=== PATIENT | female | born 1965 | race Caucasian/White ===

== ENCOUNTER → 2017-01-09 | Outpatient (CLI) | payer OTHER ==
[~2017-01-09] MED LIST: ASCO100037 PO; ASCO500C PO; B COTAB6 PO; BALS750C PO; BUPR150XL PO; CALC200T PO; CALCTAB32 PO; COLA750C2 PO; CRAN1000 PO; CRAN1TAB5 PO; CYAN1000P IM; CYAN1KIT2 IM; DENO60P SQ; DEXI30CA2 PO; ESTR.625 PO; ESTR0.5T PO; ESTR1TAB PO; FISH1000 PO; FISH100020 PO; FURO1TAB62 PO; FURO20 PO; HUMI40KI; HUMI40KI SQ; HYDR200T42 PO; K-TA10TA5 PO; LEVO.125 PO; MACR100C2 PO; MAGN400C2 PO; MULT-65 PO; MULT1TAB46 PO; PLAQ200T PO; POTA-163 PO; PRED1 PO; PRED1TAB PO; SYNT112T PO; TOPA25TA8 PO; TOPA50TA7 PO; TOPI25 PO; VITA2000 PO; VITA20003 PO; ZINC25TA2 PO
[2017-01-09 08:14] LABS: AUTOMATED NEUTROPHIL # 1.9 TH/MM3 (1.8-7.7); BASOPHIL % 0.7 % (0.0-2.0); EOSINOPHIL # 0.1 TH/MM3 (0-0.4); EOSINOPHIL % 2.2 % (0.0-4.0); HEMATOCRIT 37.9 % (35.0-46.0); HEMO FLAGS DIFF FINAL; LYMPH % 50.4 % (9.0-44.0); LYMPHOCYTE # 2.6 TH/MM3 (1.0-4.8); MEAN CELL VOLUME 95.4 FL (80.0-100.0); MEAN CORPUSCULAR HEMOGLOBIN 32.6 PG (27.0-34.0); MEAN CORPUSCULAR HGB CONC 34.2 % (32.0-36.0); MONO % 9.5 % (0.0-8.0); NEUT % 37.2 % (16.0-70.0); PLATELET COUNT 186 TH/MM3 (150-450); RED BLOOD COUNT 3.98 MIL/MM3 (4.00-5.30); RED CELL DISTRIBUTION WIDTH 13.5 % (11.6-17.2); WHITE BLOOD COUNT 5.2 TH/MM3 (4.0-11.0)
[2017-01-09 08:33] LABS: ANION GAP 10 MEQ/L (5-15); AST (GOT) 15 U/L (15-37); BICARBONATE 22.5 MEQ/L (21.0-32.0); BLOOD UREA NITROGEN 9 MG/DL (7-18); CHLORIDE 112 MEQ/L (98-107); GLOMERULAR FILTRATION RATE 63 ML/MIN (>89); GLUCOSE,FASTING 81 MG/DL (74-99); POTASSIUM 3.8 MEQ/L (3.5-5.1); SODIUM (NA) 144 MEQ/L (136-145)
[2017-01-09 08:43] LABS: ALKALINE PHOSPHATASE 29 U/L (45-117); ALT (GPT) 19 U/L (10-53); FREE T4 1.25 NG/DL (0.76-1.46); TOTAL BILIRUBIN ADULT 0.4 MG/DL (0.2-1.0)
== END ==
LOC: CLAB 07:34
PROVIDERS: ATTEND Internal Medicine Rheumatology
DX: E27.1 Primary adrenocortical insufficiency (principal); E03.9 Hypothyroidism, unspecified; K50.80 Crohn's disease of both small and large intestine without complications
CPT/HCPCS: 36415; 80053; 82024; 82533; 84439; 84443; 85025; 85652; 86140

== ENCOUNTER → 2017-02-28 | Outpatient (CLI) | payer OTHER ==
[2017-02-28 13:23] LABS: BLOOD, URINE NEG (NEG); COMMENT (UR) CULT NOT INDICATED; CULTURE IF INDICATED CULT NOT INDICATED; GLUCOSE,URINE NEG (NEG); KETONE, URINE NEG (NEG); MUCUS URINE FEW /lpf (OCC); NITRITE,URINE NEG (NEG); PH, URINE 7.5 (5.0-8.5); SQUAMOUS EPITHELIAL CELL URINE <1 /hpf (0-5); URINE COLOR YELLOW (YELLW/STRAW)
[2017-02-28 13:26] LABS: AUTOMATED NEUTROPHIL # 2.4 TH/MM3 (1.8-7.7); BASOPHIL # 0.1 TH/MM3 (0-0.2); BASOPHIL % 0.8 % (0.0-2.0); EOSINOPHIL # 0.1 TH/MM3 (0-0.4); EOSINOPHIL % 1.5 % (0.0-4.0); HEMATOCRIT 43.3 % (35.0-46.0); LYMPH % 52.7 % (9.0-44.0); LYMPHOCYTE # 3.4 TH/MM3 (1.0-4.8); MEAN CELL VOLUME 97.1 FL (80.0-100.0); MEAN CORPUSCULAR HEMOGLOBIN 31.4 PG (27.0-34.0); MEAN CORPUSCULAR HGB CONC 32.4 % (32.0-36.0); MONO % 8.2 % (0.0-8.0); NEUT % 36.8 % (16.0-70.0); PLATELET COUNT 169 TH/MM3 (150-450); RED BLOOD COUNT 4.46 MIL/MM3 (4.00-5.30); RED CELL DISTRIBUTION WIDTH 13.3 % (11.6-17.2); WHITE BLOOD COUNT 6.5 TH/MM3 (4.0-11.0)
[2017-02-28 13:31] LABS: HEMO FLAGS AUTO DIFF
[2017-02-28 13:51] LABS: ANION GAP 6 MEQ/L (5-15); AST (GOT) 20 U/L (15-37); BICARBONATE 27.7 MEQ/L (21.0-32.0); BLOOD UREA NITROGEN 13 MG/DL (7-18); CHLORIDE 109 MEQ/L (98-107); GLOMERULAR FILTRATION RATE 73 ML/MIN (>89); POTASSIUM 3.9 MEQ/L (3.5-5.1); SODIUM (NA) 143 MEQ/L (136-145)
[2017-02-28 13:56] LABS: ALKALINE PHOSPHATASE 36 U/L (45-117); ALT (GPT) 25 U/L (10-53); TOTAL BILIRUBIN ADULT 0.5 MG/DL (0.2-1.0)
[2017-02-28 14:15] LABS: SCAN/DIFF AUTO DIFF CONFIRMED
== END ==
LOC: PLAB 09:46
PROVIDERS: ATTEND Family Medicine
DX: E46 Unspecified protein-calorie malnutrition (principal); M81.0 Age-related osteoporosis without current pathological fracture; D72.819 Decreased white blood cell count, unspecified; N39.0 Urinary tract infection, site not specified
CPT/HCPCS: 36415; 80053; 81001; 85025

== ENCOUNTER → 2017-04-24 | Outpatient (CLI) | payer OTHER ==
[~2017-04-24] VITALS: Ht 160 cm; Wt 52.9 kg
[~2017-04-24] MED LIST changes: -ASCO500C PO; -B COTAB6 PO; -CALCTAB32 PO; +CHLORHEXIDINE GLUCONATE 2 % 1 PACK (2 CLOTHS) TOPICAL PRN; -COLA750C2 PO; -CRAN1000 PO; -CYAN1KIT2 IM; -DEXI30CA2 PO; -ESTR0.5T PO; -FISH100020 PO; -FURO20 PO; -HUMI40KI; -HYDR200T42 PO; +INSULIN HUMAN REGULAR 1,000 UNITS/10 ML VIAL SQ PRN; -K-TA10TA5 PO; +LACTATED RINGER'S 1000 ML IV PRN; -MAGN400C2 PO; +METOPROLOL TARTRATE 25 MG TAB PO PRN; -MULT-65 PO; +POVIDONE IODINE 5% (ANTISEPSIS KIT) 4 APPLICATIONS EACH NARE PRN; -PRED1TAB PO; +PROPOFOL 200 MG/20 ML AMP IV PUSH ONE; +SODIUM CHLORID 0.9% 500 ML IV PRN; -TOPI25 PO; -VITA20003 PO; -ZINC25TA2 PO
[2017-04-24 09:50] VITALS: BP 85/34; PULSE 75; RESP 20; TEMP 97.9; O2SAT 99
[2017-04-24 12:02] VITALS: BP 99/53; PULSE 77; RESP 16; O2SAT 100
--- NOTE | 2017-04-24 12:10 | GIPROC ---
[facility] [address] [facility]. [facility], [address] COLONOSCOPY PROCEDURE REPORT EXAM DATE: 04/24/2017 PATIENT NAME: Ml Rodríguez MR #: [id number] BIRTHDATE: 1965 ENDOSCOPIST: Alexx Hernandez MD ORDER #: [id number] BILINGUAL LOAN PROCESSOR: Aicha Cameron RN STATUS: outpatient INDICATIONS: The patient is a 51 yr old female here for a colonoscopy due to high risk patient with previously diagnosed Crohn's disease 8+ years duration intestine PROCEDURE PERFORMED: Colonoscopy with biopsy MEDICATIONS: None and Per Anesthesia. PREP QUALITY: good PREP TYPE:MoviPrep ESTIMATED BLOOD LOSS: None CONSENT: The patient understands the risks and benefits of the procedure and understands that these risks include, but are not limited to: sedation, allergic reaction, infection, perforation and/or bleeding. Alternative means of evaluation and treatment include, among others: physical exam, x-rays, and/or surgical intervention. The patient elects to proceed with this endoscopic procedure. medical equipment was checked for proper function. Hand hygiene and appropriate measures for infection prevention was taken. After the risks, benefits and alternatives of the procedure were thoroughly explained, Informed consent was verified, confirmed and timeout was successfully executed by the treatment team. A digital exam revealed no abnormalities of the rectum The Pentax EC-3490Li endoscope was introduced through the anus and advanced to the ileum. The instrument was then slowly withdrawn as the colon was fully examined. COLON FINDINGS: Multiple small non-bleeding, serpiginous and clean-based ulcers were found in the terminal ileum. Mild diverticulosis was noted in the sigmoid colon. Abnormal mucosa was found. Patchy areas of colonic mucosal granularity. Multiple biopsies were performed using cold forceps. The scope was passed with moderate difficulty due to some tortuosity and looping suggestive of adhesions. Manual abdominal compressions used to aid passage of scope. Retroflexed views revealed small internal hemorrhoids The scope was then completely withdrawn from the patient and the procedure terminated. ADVERSE EVENTS: There were no complications. IMPRESSIONS: 1. Multiple small ulcers were found in the terminal ileum 2. Mild diverticulosis was noted in the sigmoid colon 3. Abnormal mucosa was found; multiple biopsies were performed using cold forceps 4. The scope was passed with moderate difficulty due to some tortuosity and looping suggestive of adhesions. Manual abdominal compressions used to aid passage of scope 5. Retroflexed views revealed small internal hemorrhoids 6. Revealed no abnormalities of the rectum RECOMMENDATIONS: 1. Await biopsy results. Biopsy results will not be ready for 7-10 days. If you don't hear from us in two weeks, call our office for results. 2. Benefiber 2 tsp daily 3. Follow up my office in 2 weeks. RECALL: Return 2 years Colonoscopy Alexx Hernandez MD eSigned: Alexx Hernandez MD 04/24/2017 12:10 PM cc: Zak Baltazar M.D. PATIENT NAME: Ml Rodríguez MR#: [id number]
--- NOTE | 2017-04-24 20:15 | EKG ---
Date Performed: 04/24/2017 Time Performed: 09:56:34 PTAGE: 51 years EKG: Sinus rhythm NORMAL ECG PREVIOUS TRACING : 03/19/2016 14.58 Compared to prior tracing no significant change DOCTOR: [place] Hall Interpretating Date/Time 04/24/2017 20:13:42
== END ==
LOC: HEND 08:53
PROVIDERS: ATTEND Internal Medicine Gastroenterology
DX: Z12.11 Encounter for screening for malignant neoplasm of colon (principal); Z87.19 Personal history of other diseases of the digestive system; K50.90 Crohn's disease, unspecified, without complications; K64.8 Other hemorrhoids; Z01.810 Encounter for preprocedural cardiovascular examination
CPT/HCPCS: 88305; 93005

== ENCOUNTER → 2017-05-30 | Outpatient (CLI) | payer OTHER ==
[~2017-05-30] MED LIST changes: -BUPR150XL PO; -CHLORHEXIDINE GLUCONATE 2 % 1 PACK (2 CLOTHS) TOPICAL PRN; -ESTR.625 PO; -INSULIN HUMAN REGULAR 1,000 UNITS/10 ML VIAL SQ PRN; -LACTATED RINGER'S 1000 ML IV PRN; -MACR100C2 PO; -METOPROLOL TARTRATE 25 MG TAB PO PRN; -POVIDONE IODINE 5% (ANTISEPSIS KIT) 4 APPLICATIONS EACH NARE PRN; -PROPOFOL 200 MG/20 ML AMP IV PUSH ONE; -SODIUM CHLORID 0.9% 500 ML IV PRN; -TOPA50TA7 PO
== END ==
LOC: PLAB 12:01
PROVIDERS: ATTEND Internal Medicine Gastroenterology
DX: K50.80 Crohn's disease of both small and large intestine without complications (principal)
CPT/HCPCS: 36415

== ENCOUNTER → 2017-07-18 | Outpatient (CLI) | payer OTHER ==
[2017-07-18 14:00] LABS: HEMATOCRIT 40.3 % (35.0-46.0); MEAN CELL VOLUME 95.3 FL (80.0-100.0); MEAN CORPUSCULAR HGB CONC 34.6 % (32.0-36.0); PLATELET COUNT 202 TH/MM3 (150-450); RED BLOOD COUNT 4.22 MIL/MM3 (4.00-5.30); RED CELL DISTRIBUTION WIDTH 13.3 % (11.6-17.2); REVIEW FLAG FINAL; WHITE BLOOD COUNT 6.9 TH/MM3 (4.0-11.0)
[2017-07-18 14:25] LABS: ALT (GPT) 31 U/L (10-53); ANION GAP 8 MEQ/L (5-15); AST (GOT) 17 U/L (15-37); BLOOD UREA NITROGEN 7 MG/DL (7-18); CHLORIDE 112 MEQ/L (98-107); GLOMERULAR FILTRATION RATE 77 ML/MIN (>89); GLUCOSE,FASTING 85 MG/DL (74-99); POTASSIUM 3.2 MEQ/L (3.5-5.1); SODIUM (NA) 143 MEQ/L (136-145)
[2017-07-18 14:35] LABS: ALKALINE PHOSPHATASE 34 U/L (45-117); FREE T4 1.61 NG/DL (0.76-1.46); TOTAL BILIRUBIN ADULT 0.6 MG/DL (0.2-1.0)
[2017-07-18 14:39] LABS: WESTERGREN SEDIMENTATION RATE 4 mm/hr (0-30)
== END ==
LOC: PLAB 08:06
PROVIDERS: ATTEND Internal Medicine Rheumatology
DX: M06.4 Inflammatory polyarthropathy (principal); E27.1 Primary adrenocortical insufficiency; E03.9 Hypothyroidism, unspecified; Z79.899 Other long term (current) drug therapy
CPT/HCPCS: 80053; 82024; 82533; 84439; 84443; 85027; 85652; 86140

== ENCOUNTER → 2017-09-26 | Outpatient (CLI) | payer OTHER ==
[~2017-09-26] MED LIST changes: -CALC200T PO; +CALC200T51 PO; -TOPA25TA8 PO; +TOPI25 PO
[2017-09-26 16:35] LABS: AUTOMATED NEUTROPHIL # 1.9 TH/MM3 (1.8-7.7); BASOPHIL % 0.4 % (0.0-2.0); EOSINOPHIL # 0.1 TH/MM3 (0-0.4); EOSINOPHIL % 1.2 % (0.0-4.0); HEMATOCRIT 39.6 % (35.0-46.0); HEMOGLOBIN 13.5 GM/DL (11.6-15.3); LYMPH % 54.9 % (9.0-44.0); LYMPHOCYTE # 3.2 TH/MM3 (1.0-4.8); MEAN CELL VOLUME 96.6 FL (80.0-100.0); MEAN CORPUSCULAR HEMOGLOBIN 32.8 PG (27.0-34.0); MONO % 10.6 % (0.0-8.0); MONOCYTE # 0.6 TH/MM3 (0-0.9); NEUT % 32.9 % (16.0-70.0); PLATELET COUNT 188 TH/MM3 (150-450); WHITE BLOOD COUNT 5.8 TH/MM3 (4.0-11.0)
== END ==
LOC: PLAB 13:17
PROVIDERS: ATTEND Internal Medicine Gastroenterology
DX: K50.80 Crohn's disease of both small and large intestine without complications (principal); E55.9 Vitamin D deficiency, unspecified
CPT/HCPCS: 36415; 82310; 85025; 86704; 87340

== ENCOUNTER → 2018-01-20 | Outpatient (CLI) | payer OTHER ==
[~2018-01-20] MED LIST changes: -ASCO100037 PO
[2018-01-20 13:47] LABS: AUTOMATED NEUTROPHIL # 2.2 TH/MM3 (1.8-7.7); BASOPHIL % 0.5 % (0.0-2.0); EOSINOPHIL # 0.1 TH/MM3 (0-0.4); EOSINOPHIL % 1.4 % (0.0-4.0); HEMATOCRIT 41.7 % (35.0-46.0); HEMOGLOBIN 14.3 GM/DL (11.6-15.3); LYMPH % 53.7 % (9.0-44.0); LYMPHOCYTE # 3.3 TH/MM3 (1.0-4.8); MEAN CELL VOLUME 97.3 FL (80.0-100.0); MEAN CORPUSCULAR HEMOGLOBIN 33.3 PG (27.0-34.0); MEAN CORPUSCULAR HGB CONC 34.2 % (32.0-36.0); MEAN PLATELET VOLUME 9.7 FL (7.0-11.0); MONO % 7.5 % (0.0-8.0); MONOCYTE # 0.5 TH/MM3 (0-0.9); NEUT % 36.9 % (16.0-70.0); PLATELET COUNT 220 TH/MM3 (150-450); RED BLOOD COUNT 4.28 MIL/MM3 (4.00-5.30); WHITE BLOOD COUNT 6.1 TH/MM3 (4.0-11.0)
[2018-01-20 14:16] LABS: ALKALINE PHOSPHATASE 28 U/L (45-117); CHOLESTEROL 128 MG/DL (120-200); CHOLESTEROL/ HDL RATIO 2.58 RATIO; HDL CHOLESTEROL 49.5 MG/DL (40.0-60.0); TOTAL BILIRUBIN ADULT 0.5 MG/DL (0.2-1.0); TOTAL PROTEIN 6.1 GM/DL (6.4-8.2)
[2018-01-20 14:17] LABS: ALBUMIN 3.1 GM/DL (3.4-5.0); ALT (GPT) 29 U/L (10-53); AST (GOT) 25 U/L (15-37); BICARBONATE 22.9 MEQ/L (21.0-32.0); BLOOD UREA NITROGEN 7 MG/DL (7-18); CALCIUM 8.3 MG/DL (8.5-10.1); CHLORIDE 110 MEQ/L (98-107); CREATININE 0.83 MG/DL (0.50-1.00); GLOMERULAR FILTRATION RATE 72 ML/MIN (>89); GLUCOSE,FASTING 67 MG/DL (74-99); LDL CHOLESTEROL 58 MG/DL (0-99); SODIUM (NA) 143 MEQ/L (136-145); TRIGLYCERIDES 103 MG/DL (42-150)
[2018-01-20 17:38] LABS: HEMOGLOBIN A1C 4.8 % (4.3-6.0)
== END ==
LOC: PLAB 10:38
PROVIDERS: ATTEND Family Medicine
DX: K22.70 Barrett's esophagus without dysplasia (principal); N39.0 Urinary tract infection, site not specified; K50.90 Crohn's disease, unspecified, without complications; E03.9 Hypothyroidism, unspecified; D72.819 Decreased white blood cell count, unspecified; M06.4 Inflammatory polyarthropathy; Z79.899 Other long term (current) drug therapy
CPT/HCPCS: 36415; 80053; 80061; 83036; 84443; 85025; 85652; 86140

== ENCOUNTER → 2018-01-28 | Outpatient (CLI) | payer OTHER ==
[2018-01-29 15:51] LABS: DNA DOUBLE STRANDED AB <12.3 IU/mL
[2018-01-31 03:50] LABS: SJOGRENS ANTIBODY SS-A <1.0 NEG AI (<1.0 NEGATIVE); SJOGRENS ANTIBODY SS-B <1.0 NEG AI (<1.0 NEGATIVE)
== END ==
LOC: CLAB 07:24
PROVIDERS: ATTEND Internal Medicine Rheumatology
DX: M06.4 Inflammatory polyarthropathy (principal)
CPT/HCPCS: 36415; 86225; 86235

== ENCOUNTER → 2018-02-26 | Outpatient (CLI) | payer OTHER | LOC: PLAB 06:52 | PROVIDERS: ATTEND Internal Medicine Gastroenterology | DX: R19.7 Diarrhea, unspecified (principal) | CPT/HCPCS: 87493 ==

== ENCOUNTER → 2018-02-28 | Outpatient (CLI) | payer OTHER ==
[2018-03-01 12:36] LABS: FECAL FAT COLLECTION DURATION Random h; FECAL FAT TOTAL WEIGHT 12 g
== END ==
LOC: PLAB 11:29
PROVIDERS: ATTEND Internal Medicine Gastroenterology
DX: K50.818 Crohn's disease of both small and large intestine with other complication (principal); E88.09 Other disorders of plasma-protein metabolism, not elsewhere classified
CPT/HCPCS: 82710; 83993

== ENCOUNTER → 2018-03-07 | Outpatient (CLI) | payer OTHER ==
[2018-03-07 13:23] LABS: HEMATOCRIT 39.2 % (35.0-46.0); HEMOGLOBIN 13.3 GM/DL (11.6-15.3); MEAN CELL VOLUME 98.9 FL (80.0-100.0); MEAN CORPUSCULAR HEMOGLOBIN 33.5 PG (27.0-34.0); MEAN CORPUSCULAR HGB CONC 33.8 % (32.0-36.0); MEAN PLATELET VOLUME 9.6 FL (7.0-11.0); PLATELET COUNT 217 TH/MM3 (150-450); RED BLOOD COUNT 3.96 MIL/MM3 (4.00-5.30); RED CELL DISTRIBUTION WIDTH 13.4 % (11.6-17.2); WHITE BLOOD COUNT 4.7 TH/MM3 (4.0-11.0)
[2018-03-07 13:48] LABS: BICARBONATE 22.3 MEQ/L (21.0-32.0); CALCIUM 8.1 MG/DL (8.5-10.1); CREATININE 0.71 MG/DL (0.50-1.00); DIRECT BILIRUBIN ADULT 0.1 MG/DL (0.0-0.2)
[2018-03-07 13:50] LABS: INDIRECT BILIRUBIN 0.3 MG/DL (0.0-0.8); TOTAL BILIRUBIN ADULT 0.4 MG/DL (0.2-1.0); TOTAL PROTEIN 5.7 GM/DL (6.4-8.2)
== END ==
LOC: PLAB 09:55
PROVIDERS: ATTEND Specialist
DX: G93.3 Postviral and related fatigue syndromes (principal); R53.83 Other fatigue; E88.09 Other disorders of plasma-protein metabolism, not elsewhere classified; R53.1 Weakness; R53.81 Other malaise; Z79.891 Long term (current) use of opiate analgesic
CPT/HCPCS: 36415; 80048; 80076; 85027

== ENCOUNTER → 2018-03-24 | Outpatient (CLI) | payer OTHER ==
[~2018-03-24] MED LIST changes: +ASPI81CH6 CHEW; +CREO3000 PO; +DULO1CAP3 PO; +ENTO3CAP5 PO; +IMUR50TA5 PO; +NITR1CAP36 PO; +VALA1TAB PO
[2018-03-24 10:13] LABS: HEMATOCRIT 39.9 % (35.0-46.0); HEMOGLOBIN 13.6 GM/DL (11.6-15.3); MEAN CELL VOLUME 100.3 FL (80.0-100.0); MEAN CORPUSCULAR HEMOGLOBIN 34.1 PG (27.0-34.0); PLATELET COUNT 200 TH/MM3 (150-450); RED BLOOD COUNT 3.98 MIL/MM3 (4.00-5.30); RED CELL DISTRIBUTION WIDTH 14.5 % (11.6-17.2); WHITE BLOOD COUNT 5.4 TH/MM3 (4.0-11.0)
[2018-03-24 10:20] LABS: ALBUMIN 3.5 GM/DL (3.4-5.0); BLOOD UREA NITROGEN 6 MG/DL (7-18); CALCIUM 8.9 MG/DL (8.5-10.1); CHLORIDE 113 MEQ/L (98-107); CREATININE 0.76 MG/DL (0.50-1.00); GLOMERULAR FILTRATION RATE 79 ML/MIN (>89); GLUCOSE,RANDOM 78 MG/DL (74-106); SODIUM (NA) 145 MEQ/L (136-145)
[2018-03-24 10:27] LABS: ALKALINE PHOSPHATASE 27 U/L (45-117); ALT (GPT) 19 U/L (10-53); AST (GOT) 12 U/L (15-37); TOTAL BILIRUBIN ADULT 0.7 MG/DL (0.2-1.0); TOTAL PROTEIN 6.1 GM/DL (6.4-8.2)
[2018-03-24 10:38] LABS: WESTERGREN SEDIMENTATION RATE 7 mm/hr (0-30)
[2018-03-24 10:49] LABS: FREE T4 1.24 NG/DL (0.76-1.46)
== END ==
LOC: PLAB 07:42
PROVIDERS: ATTEND Internal Medicine Rheumatology
DX: M06.4 Inflammatory polyarthropathy (principal); E06.3 Autoimmune thyroiditis; D51.9 Vitamin B12 deficiency anemia, unspecified; E55.9 Vitamin D deficiency, unspecified; Z79.899 Other long term (current) drug therapy
CPT/HCPCS: 36415; 80053; 82306; 82607; 84439; 84443; 85027; 85652

== ENCOUNTER → 2018-03-26 | Outpatient (CLI) | payer OTHER ==
[~2018-03-26] VITALS: Ht 162.6 cm; Wt 50.2 kg
[~2018-03-26] MED LIST changes: +LIDOCAINE HCL 1% PF 5 ML SYRINGE OTHER ONE; +PROPOFOL 200 MG/20 ML AMP IV ONE
--- NOTE | 2018-03-26 17:13 | GIPROC ---
[facility] [address] [facility]. [facility], [address] COLONOSCOPY PROCEDURE REPORT EXAM DATE: 03/26/2018 PATIENT NAME: Ml Rodríguez MR #: [id number] BIRTHDATE: 1965 ENDOSCOPIST: Alexx Hernandez MD ORDER #: [id number] [employer] ASSEMBLER: Jayna Taveras STATUS: outpatient INDICATIONS: The patient is a 52 yr old female here for a colonoscopy due to follow up for previously diagnosed Crohn's disease PROCEDURE PERFORMED: Colonoscopy with biopsy MEDICATIONS: None and Per Anesthesia. PREP QUALITY: excellent ESTIMATED BLOOD LOSS: None CONSENT: The patient understands the risks and benefits of the procedure and understands that these risks include, but are not limited to: sedation, allergic reaction, infection, perforation and/or bleeding. Alternative means of evaluation and treatment include, among others: physical exam, x-rays, and/or surgical intervention. The patient elects to proceed with this endoscopic procedure. medical equipment was checked for proper function. Hand hygiene and appropriate measures for infection prevention was taken. After the risks, benefits and alternatives of the procedure were thoroughly explained, Informed consent was verified, confirmed and timeout was successfully executed by the treatment team. A digital exam was performed and revealed no abnormalities of the rectum The Pentax EC-3490Li endoscope was introduced through the anus and advanced to the ileum. The instrument was then slowly withdrawn as the colon was fully examined. COLON FINDINGS: Scattered small white based ulcers distal ileum. No stricture. Subtle mucosal granularity proximal colon and sigmoid colon. Biopsy obtained. Rectum including retroflexed views normal. Retroflexion was performed and was normal The scope was then completely withdrawn from the patient and the procedure terminated. PROCEDURE WITHDRAWAL TIME:8minutes ADVERSE EVENTS: There were no complications. IMPRESSIONS: 1. Scattered small white based ulcers distal ileum. No stricture 2. Subtle mucosal granularity proximal colon and sigmoid colon. Biopsy obtained. Rectum including retroflexed views normal 3. Retroflexion was performed and was normal 4. Was performed 5. Revealed no abnormalities of the rectum RECOMMENDATIONS: 1. Await biopsy results. Biopsy results will not be ready for 7-10 days. If you don't hear from us in two weeks, call our office for results. 2. F/U my office in 2 weeks RECALL: NONE Alexx Hernandez MD eSigned: Alexx Hernandez MD 03/26/2018 5:12 PM cc: Zak Baltazar M.D. PATIENT NAME: Ml Rodríguez MR#: [id number]
[2018-03-26 17:32] VITALS: BP 83/42; PULSE 80; RESP 18; TEMP 97.7; O2SAT 100
== END ==
LOC: HEND 14:14
PROVIDERS: ATTEND Internal Medicine Gastroenterology
DX: K50.90 Crohn's disease, unspecified, without complications (principal); K63.3 Ulcer of intestine; E88.09 Other disorders of plasma-protein metabolism, not elsewhere classified; K86.81 Exocrine pancreatic insufficiency; E03.9 Hypothyroidism, unspecified
CPT/HCPCS: 88305